=== PATIENT | female | born 1980 | race African-American/Black ===

== ENCOUNTER 2023-09-04 10:54 | Emergency (ER) | payer OTHER, SELFPAY ==
[2023-09-04 11:04] VITALS: BP 121/83; PULSE 73; RESP 20; TEMP 36.9; O2SAT 100
--- NOTE | 2023-09-04 12:02 | ED.GENADULT ---
HPI - General Adult General Chief complaint: Upper Respiratory Infection Stated complaint: cough/head/ears Time Seen by Provider: 09/04/23 12:06 Source: patient, RN notes reviewed and old records reviewed Mode of arrival: ambulatory Limitations: no limitations History of Present Illness HPI narrative: 43-year-old female presents with complaint cough, wheezing, fatigue, myalgia, and generalized weakness this started Monday. Patient states has history of asthma. Patient using albuterol inhaler more often than normal. Patient states this does not feel like her normal asthma. Patient's last prednisone was in the spring. Patient has been intubated before due to asthma Related Data Home Medications Medication Instructions Recorded Confirmed norgestimate 0.25 mg-ethinyl See Rx Instructions .Route .COMPLEX 09/04/23 09/04/23 estradiol 35 mcg tablet ([place]) Allergies Allergy/AdvReac Type Severity Reaction Status Date / Time Sulfa (Sulfonamide Allergy Hives Verified 09/04/23 11:30 Antibiotics) amoxicillin AdvReac Nausea and Verified 09/04/23 11:30 Vomiting Review of Systems Constitutional: Constitutional: Reports as per HPI, Reports body ache(s), Reports fatigue and Reports headache(s) Eyes: Eyes: Reports no additional eye complaints ENT: Reports as per HPI and Reports nasal discharge Cardiovascular: Cardiovascular: Reports no additional cardiovascular complaints Respiratory: Respiratory: Reports cough and Reports wheezing Neurologic: Reports system reviewed and no additional complaints, except as documented PMFSH Comments At the time of my signature, I reviewed and agree with the nursing past medical, surgical, social, and family history. There is no relevant family history pertinent to the patient complaint. Exam Const: General: cooperative, healthy appearing, no acute distress and well nourished Nutritional Appearance: well nourished Orientation/consciousness: patient oriented x3 Limitations: no limitations HENMT: Head: normal to inspection and normocephalic Ears: external ears normal, TM's normal bilaterally, mastoids normal and Abnormal EAC present Face/Nose/Sinus: normal facial exam Face and sinus: normal facial exam Mouth: Yes Normal oral and palatal mucosa present, Yes oropharynx normal and Yes moist mucous membranes Throat: posterior oropharynx normal, tonsils normal, uvula midline and no uvular edema Eyes: General: appearance normal, both eyes and all related structures Sclera: sclerae normal Pupils: Equal, round and reactive pupils present Resp: Effort & Inspection: normal respiratory effort, able to speak in complete sentences, no audible wheezes, Actively coughing, no respiratory distress and no retractions Auscultation: clear to auscultation bilaterally, no crackles, no rales, no rhonchi and wheezes scattered wheezes Cardio: Rate: regular rate Rhythm: regular rhythm Skin: General skin exam: normal color and no rashes or lesions noted Neuro: General: patient oriented x3 Cranial nerves: Yes Equal, round and reactive pupils present Psych: Appearance: grossly normal Course Course Emergency Course: Some parts of this dictation were generated by voice recognition software and may contain typographical and/or grammatical inaccuracies. Level of Care: Express Care Visit Vital Signs Vital signs: Vital Signs Temperature 98.4 F 09/04/23 11:04 Pulse Rate 73 09/04/23 11:04 Respiratory Rate 20 09/04/23 11:04 Blood Pressure 121/83 09/04/23 11:04 Pulse Oximetry 100 09/04/23 11:04 Oxygen Delivery Room Air 09/04/23 11:04 Temperature 98.4 F 09/04/23 11:04 Pulse Rate 73 09/04/23 11:04 Respiratory Rate 20 09/04/23 11:04 Blood Pressure 121/83 09/04/23 11:04 Pulse Oximetry 100 09/04/23 11:04 Oxygen Delivery Room Air 09/04/23 11:04 Reviewed Medical Decision Making MDM Narrative Medical decision making narrative: patient with cough
== END 2023-09-04 12:30 | disposition home or self-care (01) ==
PROVIDERS: Emergency Provider Registered Nurse; PCP Internal Medicine
DX: J06.9 Acute upper respiratory infection, unspecified (principal); J45.20 Mild intermittent asthma, uncomplicated; Z20.822 Contact with and (suspected) exposure to COVID-19; Z98.84 Bariatric surgery status
CPT/HCPCS: 87426; 99213; C9803; G0463